=== PATIENT | male | born 1970 | race Caucasian/White ===

== ENCOUNTER 2017-01-16 09:32 | Emergency (ER) | payer SELFPAY ==
[~2017-01-16] VITALS: Ht 185.4 cm; Wt 88.5 kg
[2017-01-16 09:39] VITALS: BP 207/116; PULSE 99; O2SAT 98; Ht 185.4 cm; Wt 88.5 kg
[2017-01-16] MEDS ORDERED: XYLOCAINE 1%/SOD BICARB 20 ML VIAL INFIL ONE ×2 (09:45→09:50)
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
== END 2017-01-16 10:13 | disposition home or self-care (01) ==
LOC: C.EDB 09:34
DX: S61.011A Laceration without foreign body of right thumb without damage to nail, initial encounter (principal); W26.0XXA Contact with knife, initial encounter; Z88.5 Allergy status to narcotic agent

== ENCOUNTER 2018-06-06 03:22 | Emergency (ER) | payer SELFPAY ==
[~2018-06-06] VITALS: Ht 185.4 cm; Wt 85.2 kg
[2018-06-06 03:31] VITALS: TEMP 36.5; Ht 185.4 cm; Wt 85.2 kg
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
[2018-06-06 03:48] LABS: BASO % 0.5 %; BASO ABS # 0.04 K/uL (0-0.2); EOS % 1.6 %; EOS ABS # 0.14 K/uL (0-0.5); HEMOGLOBIN 17.8 g/dL (14.0-18.0); IG# 0.02 K/uL (0.00-0.02); LYMPH % 41.1 %; LYMPH ABS # 3.57 K/uL (1.2-3.4); MEAN CELL VOLUME 101.2 fL (80-100); MEAN CORPUSCULAR HEMOGLOBIN 36.8 pg (25-34); MEAN CORPUSCULAR HGB CONC 36.3 g/dl (32-36); MONO % 9.1 %; MONO ABS # 0.79 K/uL (0.11-0.59); NEUT % 47.5 %; NEUT ABS # 4.12 K/uL (1.4-6.5); PLATELET COUNT 228 K/uL (130-400); RED CELL DISTRIBUTION WIDTH CV 13.3 % (11.5-14.5); RED CELL DISTRIBUTION WIDTH SD 49.6 fL (36.4-46.3); WHITE BLOOD COUNT 8.68 K/uL (4.8-10.8)
[2018-06-06 04:01] VITALS: O2SAT 98
[2018-06-06 04:16] LABS: CALCIUM 8.2 mg/dl (8.5-10.1); CREATININE 0.95 mg/dl (0.60-1.40); POTASSIUM 3.3 mmol/L (3.5-5.1)
[2018-06-06] MEDS ORDERED: OPTIRAY 320 IV PRN (05:00)
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
[2018-06-06] MEDS ORDERED: LIDOCAINE 1% BUFFERED INJ 20 ML VIAL ONE (07:03)
--- NOTE | 2018-06-06 07:07 | DIAGNOSTIC IMAGING REPORT ---
CERVICAL SPINE CT CT DOSE: 1538.08 mGy.cm HISTORY: eval for trauma TECHNIQUE: Multiaxial CT images of the cervical spine were performed and reformatted in the sagittal and coronal plane without the use of contrast. A dose lowering technique was utilized adhering to the principles of ALARA. COMPARISON: None. FINDINGS: No fractures. No subluxation. Prevertebral soft tissues and the C1-C2 interval are intact. Small left apical bleb versus a tiny pneumothorax. Mild degenerative disease at C4-C5. Moderate degenerative disc disease at C5-C6 and C6-C7. IMPRESSION: 1. No fracture or subluxation within the cervical spine. 2. Small left apical bleb versus a tiny left apical pneumothorax. A chest CT has been ordered and this will be better appreciated on this study. 3. These findings were called/faxed to the emergency department following dictation. Electronically signed by: Franklyn Ocampo M.D. 06/06/2018 7:05 AM Dictated Date/Time: 06/06/2018 7:00 AM
--- NOTE | 2018-06-06 07:17 | EMERGENCY ROOM VISIT NOTE ---
ED Visit Note 48-year-old male who I was asked by Dr. Grossman to perform a facial laceration repair. Please see Dr. Grossman's dictation for further workup, treatment and final disposition. PROCEDURE NOTE: Examination of the right cheek shows a 2 cm macerated laceration without active bleeding. The patient has notable right facial edema. The patient provided verbal consent for laceration repair under local anesthesia. Using buffered 1% lidocaine without epinephrine, good local anesthesia was administered. The peripheral tissue was then cleansed with iodine, then the wound was irrigated with normal saline. In sterile fashion, the laceration was then approximated using 6-0 nylon simple interrupted sutures 4. Bacitracin was applied.
--- NOTE | 2018-06-06 08:20 | DIAGNOSTIC IMAGING REPORT ---
MAXILLOFACIAL CT CT DOSE: HISTORY: Facial injury. eval for trauma TECHNIQUE: Multiaxial CT images of the maxillofacial region were performed and reformatted in the coronal plane without the use of contrast. A dose lowering technique was utilized adhering to the principles of ALARA. COMPARISON: None. FINDINGS: The visualized cervical spine, skull base, pterygoid plates, lamina papyracea, orbital floors, mandible, and zygomatic arches are intact. No acute fractures. Mild deformity within the nasal bones likely represent old, healed fractures. Mild mucosal thickening within the right maxillary sinus. The globes and retrobulbar fat are intact. Left frontal scalp hematoma. There is also a right infraorbital/facial soft tissue hematoma. IMPRESSION: No fractures within the maxillofacial region. Soft tissue injuries as described above. Electronically signed by: Franklyn Ocampo M.D. 06/06/2018 8:18 AM Dictated Date/Time: 06/06/2018 8:12 AM
[2018-06-06 12:20] VITALS: BP 106/68; PULSE 96; O2SAT 95
== END 2018-06-06 12:30 | disposition home or self-care (01) ==
LOC: EDBD 03:22 → C.EDB 03:24 → MERGE 03:24 → EDBD 03:24 → C.EDB 12:30
DX: T74.11XA Adult physical abuse, confirmed, initial encounter (principal); S09.93XA Unspecified injury of face, initial encounter; T51.91XA Toxic effect of unspecified alcohol, accidental (unintentional), initial encounter; Y04.2XXA Assault by strike against or bumped into by another person, initial encounter; F17.200 Nicotine dependence, unspecified, uncomplicated; Z88.5 Allergy status to narcotic agent; Y90.8 Blood alcohol level of 240 mg/100 ml or more